=== PATIENT | female | born 2005 | race Two or more races ===

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

== ENCOUNTER → 2024-10-04 | Emergency (ER) | payer OTHER ==
[~2024-10-04] VITALS: Ht 154.9 cm; Wt 51.7 kg
[~2024-10-04] MED LIST: ACETAMINOPHEN 325 MG TABLET PO ONE; ACETAMINOPHEN 500 MG GEL..CAP PO ONE; IRON236 MG PO; PRENATAL CAPLE1 EAC1 PO
[2024-10-04 21:08] VITALS: BP 106/54; O2SAT 100
[2024-10-04 22:11] LABS: HEMATOCRIT 38.1 % (36.0-45.00); HEMOGLOBIN 12.7 g/dL (12.0-15.00); MEAN CELL VOLUME 86.4 fL (80.00-100.00); MEAN CORPUSCULAR HEMOGLOBIN 28.9 pg (27.00-32.0); MEAN CORPUSCULAR HGB CONC 33.4 g/dl (32.0-36.0); PLATELET COUNT 202 K/uL (150-450); RED BLOOD COUNT 4.41 M/uL (4.00-6.00); RED CELL DISTRIBUTION WIDTH 13.6 % (11.5-14.5)
[2024-10-04 22:39] LABS: PH,URINE 6.5 (5.0-8.0); URINE APPEARANCE Clear; URINE BILIRRUBIN Negative (NEGATIVE); URINE BLOOD Moderate; URINE COLOR Yellow; URINE GLUCOSE Negative (NEGATIVE); URINE KETONE Negative (NEGATIVE); URINE LEUKOCYTE Negative; URINE NITRATE Negative; URINE PROTEIN Negative (NEGATIVE)
[2024-10-04 22:42] LABS: URINE BACTERIA 493.2 uL (0.0-1933); URINE EPITHELIAL CELLS 44.4 uL (0.0-38.8); URINE RBC 9.7 uL (0.0-20.8); URINE WBC 26.7 uL (0.0-23.2)
[2024-10-04 22:45] LABS: URINE CAST 0.14 uL (0.0-1.40)
== END | disposition left against medical advice (07) ==
LOC: ER 20:28
PROVIDERS: General Practice
DX: O20.9 Hemorrhage in early pregnancy, unspecified (principal); Z3A.09 9 weeks gestation of pregnancy